=== PATIENT | female | born 1965 | race Caucasian/White ===

== ENCOUNTER 2016-12-25 18:00 | Emergency (ER) | payer OTHER ==
[2016-12-25] MEDS ORDERED: PHENAZOPYRIDINE 100 MG TABLET PO STA (20:08)
[2016-12-25] MEDS ORDERED: FLUCONAZOLE 100 MG TABLET PO STA (20:08)
[2016-12-25] MEDS ORDERED: NITROFURANTOIN MACRO 100 MG CAPSULE PO STA (20:08)
[2016-12-25] MEDS ORDERED: PHENAZOPYRIDINE 100 MG TABLET PO ONE (20:29)
[2016-12-25] MEDS ORDERED: NITROFURANTOIN MACRO 100 MG CAPSULE PO ONE (20:29)
[2016-12-25] MEDS ORDERED: FLUCONAZOLE 100 MG TABLET ONE ×2 (20:29→20:33)
== END 2016-12-25 20:38 | disposition home or self-care (01) ==
DX: N30.00 Acute cystitis without hematuria (principal); I10 Essential (primary) hypertension; E78.00 Pure hypercholesterolemia, unspecified; J45.909 Unspecified asthma, uncomplicated; E11.9 Type 2 diabetes mellitus without complications; Z79.82 Long term (current) use of aspirin; F17.200 Nicotine dependence, unspecified, uncomplicated
CPT/HCPCS: 81001; 87077; 87086; 87181; 99283; A9270

== ENCOUNTER 2018-11-01 08:14 | Emergency (ER) | payer OTHER ==
[2018-11-01] MEDS ORDERED: KETOROLAC 30 MG/ML VIAL IVP STA (08:40)
[2018-11-01] MEDS ORDERED: SODIUM CHLORIDE 0.9% 1,000 ML IV ONE (08:40)
[2018-11-01] MEDS ORDERED: cefTRIAXone 1 GM in SODIUM CHLORIDE 0.9% MINIBAG 100 ML IV STA (08:40)
--- NOTE | 2018-11-01 08:43 | ED Physician Documentation ---
PD HPI FEMALE - Stated complaint Stated Complaint: LEFT LOWER HIP PAIN INTO RIBS - Chief complaint Chief Complaint: Back Pain - History obtained from History obtained from: Patient - History of Present Illness Timing - onset: How many weeks ago (1) Timing - details: Still present (Getting worse) Associated symptoms: Abdominal pain, Back pain, Dysuria, Urinary frequency. No: Fever Similar symptoms before: Diagnosis (Pyelonephritis three months ago.) - Additional information Additional information: The patient is a 53-year-old diabetic female who presents with dysuria and frequency of urination that started about 1 week ago and has gotten progressively worse since that time. Today she developed left flank pain as well as suprapubic pressure. She has had mild nausea, without vomiting. She denies fever. She reports history of "kidney infection" 3 months ago. Review of Systems Constitutional: denies: Fever Nose: reports: Congestion Throat: denies: Sore throat Cardiac: denies: Palpitations Respiratory: reports: Cough. denies: Dyspnea GI: reports: Abdominal Pain (suprapubic), Nausea. denies: Vomiting : reports: Dysuria, Frequency. denies: Hematuria Skin: denies: Rash Musculoskeletal: reports: Back pain (left flank). 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 LOADER: section HEENT: Tonsil/Adenoidectomy - Present Medications Home Medications: Ambulatory Orders Medication Instructions Recorded Confirmed Aspirin [Aspir 81] 81 mg PO DAILY 10/14/13 11/01/18 Lisinopril [Prinivil] 20 mg PO DAILY 10/14/13 11/01/18 Metformin HCl [Fortamet] 1,000 mg PO BID 10/14/13 11/01/18 hydroCHLOROthiazide [Hydrodiuril] 25 mg PO ONCE 10/14/13 11/01/18 Albuterol 2.5 mg INH Q4H PRN 12/26/15 11/01/18 Phenazopyridine HCl [Pyridium] 200 mg PO TID PRN #6 tablet 11/01/18 cephALEXin [Cephalexin] 500 mg PO TID #20 tablet 11/01/18 - Allergies Allergies/Adverse Reactions: Allergies Allergy/AdvReac Type Severity Reaction Status Date / Time shellfish derived AdvReac Anaphylaxis Verified 12/25/16 18:19 - Social History Does the pt smoke?: Yes Smoking Status: Current every day smoker Does the pt drink ETOH?: No Does the pt have substance abuse?: No - Immunizations Immunizations are current?: Yes - POLST Patient has POLST: No PD ED PE NORMAL - Vitals Vital signs reviewed: Yes (normal) - General General: Alert and oriented X 3, Well developed/nourished - HEENT HEENT: Atraumatic, Pharynx benign - Neck Neck: No adenopathy, No JVD - Cardiac Cardiac: RRR, No murmur - Respiratory Respiratory: No respiratory distress, Clear bilaterally - Abdomen Abdomen: Soft, Other (Suprapubic tenderness to palpation, without rebound or guarding.) - Back Back: Other (Left flank tenderness to percussion.) - Derm Derm: No rash - Extremities Extremities: No edema, No calf tenderness / cord - Neuro Neuro: Alert and oriented X 3, No motor deficit, Normal speech Results - Vitals Vitals: Oxygen O2 Source Room air - Labs Labs: Microbiology 11/01/18 09:18 Urine Culture - Final Urine,Catheterized Escherichia Coli Laboratory Tests 11/01/18 11/01/18 11/01/18 09:15 09:15 09:18 WBC 13.1 H RBC 5.17 Hgb 9.3 L Hct 33.3 L MCV 64.3 L MCH 18.0 L MCHC 28.0 L RDW 20.0 H Plt Count 342 MPV 8.9 Neut # (Auto) 10.3 H Lymph # (Auto) 1.5 Josephine # (Auto) 0.8 Eos # (Auto) 0.3 Baso # (Auto) 0.2 H Absolute Nucleated RBC 0.01 Nucleated RBC % 0.1 Sodium 141 Potassium 3.8 Chloride 103 Carbon Dioxide 27 Anion Gap 11.0 BUN 11 Creatinine 0.5 Estimated GFR (MDRD) 130 Glucose 144 H Calcium 9.5 Urine Color YELLOW Urine Clarity CLEAR Urine pH 7.0 Ur Specific [place] 1.020 Urine Protein 30 H Urine Glucose (UA) NEGATIVE Urine Ketones NEGATIVE Urine Occult Blood MODERATE H Urine Nitrite NEGATIVE Urine Bilirubin NEGATIVE Urine Urobilinogen 0.2 (NORMAL) Ur Leukocyte Esterase SMALL H Urine RBC 6-10 H Urine WBC 11-25 H Ur Squamous Epith Cells RARE Squamous Urine Bacteria Rare Ur Microscopic Review INDICATED Urine Culture Comments INDICATED PD MEDICAL DECISION MAKING - ED course Complexity details: reviewed results, re-evaluated patient, considered differential, d/w patient ED course: The patient's presentation is most consistent with urinary tract infection. She does not appear septic, and I doubt pyelonephritis. Her urinalysis is positive for pyuria and leuko-uremia. Culture and sensitivity are pending. Her white blood cell count is elevated at 13.1. Her CBC also reveals anemia with a hemoglobin of 9.3 and hematocrit 33.9. Her serum glucose is only mildly elevated at 144. The rest of her chemistry panel was normal. Treatment in the emergency department included administration of normal saline 1 L IV, ceftriaxone 1 g IV, and ketorolac 30 mg IV. She is being discharged with prescriptions for cephalexin and for Pyridium. I discussed with her the diagnosis, expected course of illness, antibiotic treatment and outpatient follow-up, as well as potentially worrisome signs or symptoms that should prompt reevaluation in the emergency department. Departure - Departure Disposition: 01 Home, Self Care Clinical Impression: Urinary tract infection Qualifiers: Urinary tract infection type: acute cystitis Hematuria presence: without hematuria Qualified Code(s): N30.00 - Acute cystitis without hematuria Condition: Stable Instructions: ED UTI Cystitis Female Follow-Up: Rachel Wood MD [Primary Care Provider] - Prescriptions: cephALEXin [Cephalexin] 500 mg PO TID #20 tablet Phenazopyridine HCl [Pyridium] 200 mg PO TID PRN #6 tablet PRN Reason: dysuria Comments: Drink plenty of fluids, including cranberry juice. Take cephalexin 3 times daily as prescribed. You can use Pyridium as prescribed if needed for painful urination. You can use ibuprofen, up to 800 mg 3 times daily for its anti-inflammatory effect. Follow-up with your primary physician within 2 weeks. Call to schedule an appointment. Return to the emergency department if you develop increasing pain, fever with shaking chills, persistent vomiting, or otherwise worsening symptoms. Forms: Activity restrictions Discharge Date/Time: 11/01/18 11:07
[2018-11-01 09:30] LABS: BILIRUBIN,URINE NEGATIVE (NEGATIVE); CLARITY,URINE CLEAR (CLEAR); GLUCOSE, URINE (UA) NEGATIVE (NEGATIVE); KETONES,URINE (UA) NEGATIVE (NEGATIVE); LEUKOCYTE ESTERASE, URINE SMALL (NEGATIVE); NITRITE,URINE NEGATIVE (NEGATIVE); OCCULT BLOOD,URINE MODERATE (NEGATIVE); PROTEIN,URINE 30 mg/dL (NEGATIVE); UROBILINOGEN,URINE 0.2 (NORMAL) E.U./dL (NORMAL)
[2018-11-01 09:39] LABS: CALCIUM 9.5 mg/dL (8.5-10.3); CREATININE 0.5 mg/dL (0.4-1.0)
[2018-11-01 09:43] LABS: BASOPHILS # (AUTO) 0.2 10^3/uL (0.0-0.1); BASOPHILS % (AUTO) 1.4 %; EOSINOPHILS # (AUTO) 0.3 10^3/uL (0.0-0.7); HGB - HEMOGLOBIN 9.3 g/dL (12.0-16.0); LYMPHOCYTES # (AUTO) 1.5 10^3/uL (1.5-3.5); LYMPHOCYTES % (AUTO) 11.6 %; MEAN CORPUSCULAR VOLUME 64.3 fL (81.0-99.0); MEAN PLATELET VOLUME 8.9 fL (7.9-10.8); MONOCYTES # (AUTO) 0.8 10^3/uL (0.0-1.0); MONOCYTES % (AUTO) 6.2 %; NEUTROPHILS # (AUTO) 10.3 10^3/uL (1.5-6.6); NEUTROPHILS % (AUTO) 78.8 %; PLT - PLATELET COUNT 342 10^3/uL (130-450); RED BLOOD COUNT 5.17 10^6/uL (4.20-5.40); WHITE BLOOD COUNT 13.1 x10^3/uL (4.8-10.8)
[2018-11-01 09:47] LABS: BACTERIA,URINE Rare /HPF (None Seen); SQUAMOUS EPITHELIAL CELL,UR RARE Squamous (<= Few)
[2018-11-01 10:57] VITALS: BP 141/95
== END 2018-11-01 11:07 | disposition home or self-care (01) ==
LOC: ED 08:14
DX: N30.00 Acute cystitis without hematuria (principal); D64.9 Anemia, unspecified; E11.9 Type 2 diabetes mellitus without complications; I10 Essential (primary) hypertension; E78.00 Pure hypercholesterolemia, unspecified; F17.200 Nicotine dependence, unspecified, uncomplicated; Z79.82 Long term (current) use of aspirin; Z79.84 Long term (current) use of oral hypoglycemic drugs
CPT/HCPCS: 36415; 80048; 81001; 81003; 85025; 87086; 87181; 96365; 96375; 99283; 99284

== ENCOUNTER 2018-11-16 05:27 | Emergency (ER) | payer OTHER ==
[2018-11-16] MEDS ORDERED: SODIUM CHLORIDE 0.9% 1,000 ML IV ONE (06:19)
[2018-11-16] MEDS ORDERED: KETOROLAC 30 MG/ML VIAL IVP STA (06:19)
[2018-11-16] MEDS ORDERED: DEXAMETHASONE 10 MG/ML VIAL IVP STA (06:19)
--- NOTE | 2018-11-16 06:21 | ED Physician Documentation ---
PD HPI CHEST PAIN - Stated complaint Stated Complaint: SOA/BODY PX/FEVER - Chief complaint Chief Complaint: Resp - History obtained from History obtained from: Patient - History of Present Illness Timing - onset: Yesterday Timing - onset during: Rest Timing - duration: Days (1) Timing - details: Gradual onset, Still present Quality: Tightness, Sharp Location: Left chest Radiation: Back Improved by: Rest Worsened by: Inspiration, Movement, Palpation, Position Associated symptoms: Shortness of air, Cough. No: Diaphoresis, Nausea, Vomiting, Feeling faint / dizzy, General Weakness, Palpitations Similar symptoms before: Has not had sx before Recently seen: Not recently seen - Additional information Additional information: 53-year-old female awoke yesterday morning with pain in her left side that radiates down her left side. It is worse with inspiration and movement. She has had a cough for the past week. Review of Systems Constitutional: reports: Fever, Chills, Myalgias, Fatigue Eyes: denies: Decreased vision Ears: denies: Ear pain Nose: reports: Rhinorrhea / runny nose, Congestion Throat: reports: Sore throat Cardiac: reports: Chest pain / pressure. denies: Palpitations, Pedal edema, Calf pain Respiratory: reports: Cough. denies: Dyspnea GI: reports: Abdominal Pain. denies: Nausea, Vomiting : denies: Dysuria, Frequency Skin: denies: Rash Musculoskeletal: reports: Back pain. 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 HEENT: Tonsil/Adenoidectomy - Present Medications Home Medications: Ambulatory Orders Medication Instructions Recorded Confirmed Aspirin [Aspir 81] 81 mg PO DAILY 10/14/13 11/01/18 Lisinopril [Prinivil] 20 mg PO DAILY 10/14/13 11/01/18 Metformin HCl [Fortamet] 1,000 mg PO BID 10/14/13 11/01/18 hydroCHLOROthiazide [Hydrodiuril] 25 mg PO ONCE 10/14/13 11/01/18 Albuterol 2.5 mg INH Q4H PRN 12/26/15 11/01/18 Phenazopyridine HCl [Pyridium] 200 mg PO TID PRN #6 tablet 11/01/18 cephALEXin [Cephalexin] 500 mg PO TID #20 tablet 11/01/18 Amox/Clav 875/125 [Augmentin] 1 each PO Q12H #20 tablet 11/16/18 Hydrocodone/Acetaminophen 1 - 2 each PO Q6H PRN #14 tablet 11/16/18 [Hydrocodon-Acetaminophen 5-325] - Allergies Allergies/Adverse Reactions: Allergies Allergy/AdvReac Type Severity Reaction Status Date / Time shellfish derived AdvReac Anaphylaxis Verified 12/25/16 18:19 - Social History Does the pt smoke?: Yes Smoking Status: Current every day smoker Does the pt drink ETOH?: No Does the pt have substance abuse?: No - Immunizations Immunizations are current?: Yes - POLST Patient has POLST: No PD ED PE NORMAL - Vitals Vital signs reviewed: Yes - General General: Alert and oriented X 3, No acute distress, Well developed/nourished - HEENT HEENT: Atraumatic, PERRL, EOMI, Other (erythema and rounding of the umbo bilaterally ) - Neck Neck: Supple, no meningeal sign, No bony TTP - Cardiac Cardiac: RRR, No murmur - Respiratory Respiratory: No respiratory distress, Clear bilaterally, Other (There is mild chest wall tenderness on the left reproducing the pain the patient is experiencing. ) - Abdomen Abdomen: Soft, Other (left abdominal pain to palpation without guarding or rebound tenderness. 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, No motor deficit, No sensory deficit, Normal speech Eye Opening: Spontaneous Motor: Obeys Commands Verbal: Oriented GCS Score: 15 - Psych Psych: Normal mood, Normal affect Results - Vitals Vitals: Vital Signs - 24 hr 11/16/18 11/16/18 11/16/18 05:32 05:36 07:22 Temperature 36.7 C Heart Rate 109 H 100 Respiratory 18 20 Rate Blood Pressure 130/79 131/79 H O2 Saturation 98 97 98 Oxygen O2 Source Room air - EKG (time done) 0640 Rate: Rate (enter#) (99) Rhythm: NSR, LAE, KATIA Ischemia: ST elevation c/w repol (isolated to V2 only) Compare to prior EKG: Old EKG unavailable Computer interpretation: Agree with computer - Labs Labs: Laboratory Tests 11/16/18 11/16/18 11/16/18 06:38 06:38 06:38 WBC 13.8 H RBC 4.74 Hgb 8.8 L Hct 29.9 L MCV 63.1 L MCH 18.5 L MCHC 29.3 L RDW 19.3 H Plt Count 320 MPV 8.6 Neut # (Auto) 11.8 H Lymph # (Auto) 0.[address] [place] # (Auto) 0.9 Eos # (Auto) 0.1 Baso # (Auto) 0.0 Absolute Nucleated RBC 0.01 Nucleated RBC % 0.0 Manual Slide Review Indicated Platelet Estimate NORMAL (130-450,000) Platelet Morphology NORMAL APPEARANCE RBC Morph Micro Appear 2+ ANISOCYTOSIS Sodium 135 Potassium 3.9 Chloride 100 L Carbon Dioxide 26 Anion Gap 9.0 BUN 9 Creatinine 0.5 Estimated GFR (MDRD) 130 Glucose 148 H Calcium 9.0 Total Bilirubin 0.7 AST 19 ALT 16 Alkaline Phosphatase 65 Troponin I < 0.04 Total Protein 7.6 Albumin 3.6 Globulin 4.0 Albumin/Globulin Ratio 0.9 L Lipase 27 Urine Color Urine Clarity Urine pH Ur Specific [place] Urine Protein Urine Glucose (UA) Urine Ketones Urine Occult Blood Urine Nitrite Urine Bilirubin Urine Urobilinogen Ur Leukocyte Esterase Urine RBC Urine WBC Ur Squamous Epith Cells Urine Bacteria Ur Microscopic Review Urine Culture Comments Influenza A (Rapid) Influenza B (Rapid) 11/16/18 11/16/18 07:07 07:35 WBC RBC Hgb Hct MCV MCH MCHC RDW Plt Count MPV Neut # (Auto) Lymph # (Auto) [place] # (Auto) Eos # (Auto) Baso # (Auto) Absolute Nucleated RBC Nucleated RBC % Manual Slide Review Platelet Estimate Platelet Morphology RBC Morph Micro Appear Sodium Potassium Chloride Carbon Dioxide Anion Gap BUN Creatinine Estimated GFR (MDRD) Glucose Calcium Total Bilirubin AST ALT Alkaline Phosphatase Troponin I Total Protein Albumin Globulin Albumin/Globulin Ratio Lipase Urine Color YELLOW Urine Clarity CLOUDY Urine pH 7.0 Ur Specific [place] 1.020 Urine Protein 100 H Urine Glucose (UA) NEGATIVE Urine Ketones NEGATIVE Urine Occult Blood TRACE-INTA Urine Nitrite NEGATIVE Urine Bilirubin NEGATIVE Urine Urobilinogen 0.2 (NORMAL) Ur Leukocyte Esterase MODERATE H Urine RBC 6-10 H Urine WBC >25 H Ur Squamous Epith Cells MOD Squamous H Urine Bacteria Few Ur Microscopic Review INDICATED Urine Culture Comments NOT INDICATED Influenza A (Rapid) Negative Influenza B (Rapid) Negative - Rads (name of study) CXR 2 view Radiology: Prelim report reviewed (Impression: Mild to moderate bilateral interstitial and airspace disease, similar to prior studies. Stable mild cardiomegaly. Favor pulmonary edema or atypical infection in appropriate clinical setting.), EMP read indepedently, See rad report Procedures - Bedside sono Bedside sono by EMP: With use of bedside ultrasound the left kidney is imaged and it is sonographically nontender. There is no evidence of hydronephrosis. - IVC sono (time) 0620 Bedside IVC sono: IVC measures (cm) (1.7), Euvolemia PD MEDICAL DECISION MAKING - ED course Complexity details: reviewed results, re-evaluated patient, considered differential, d/w patient ED course: 53-year-old female with left sided pleuritic chest pain has had cough for the past week. She indicates she has had some postnasal drainage with thick yellow phlegm since being in a new house with baseboard heat. She has pain to her sinuses as well. On examination she has bilateral otitis. Here in the emergency department she is administered intravenous Decadron and Toradol. She has marked improvement with the medications and her CXR is concerning for pneumonia. I suspect the pain in her side is from coughing. She is administered IV rocephin and we will start her on Augmentin. Departure - Departure Disposition: 01 Home, Self Care Clinical Impression: Pneumonia Qualifiers: Pneumonia type: due to unspecified organism Laterality: right Lung location: lower lobe of lung Qualified Code(s): J18.1 - Lobar pneumonia, unspecified organism Otitis media Qualifiers: Otitis media type: suppurative Chronicity: acute Laterality: bilateral Recurrence: not specified as recurrent Spontaneous tympanic membrane rupture: without spontaneous rupture Qualified Code(s): H66.003 - Acute suppurative otitis media without spontaneous rupture of ear drum, bilateral Urinary tract infection Qualifiers: Urinary tract infection type: site unspecified Hematuria presence: without hematuria Qualified Code(s): N39.0 - Urinary tract infection, site not specified Condition: Stable Instructions: ED Otitis Media Acute Adult, ED Pneumonia Adult Follow-Up: Rachel Wood MD [Primary Care Provider] - Prescriptions: Amox/Clav 875/125 [Augmentin] 1 each PO Q12H #20 tablet Hydrocodone/Acetaminophen [Hydrocodon-Acetaminophen 5-325] 1 - 2 each PO Q6H PRN #14 tablet PRN Reason: pain Forms: Activity restrictions
[2018-11-16 07:02] LABS: BASOPHILS % (AUTO) 0.3 %; EOSINOPHILS # (AUTO) 0.1 10^3/uL (0.0-0.7); EOSINOPHILS % (AUTO) 0.8 %; HGB - HEMOGLOBIN 8.8 g/dL (12.0-16.0); LYMPHOCYTES # (AUTO) 0.9 10^3/uL (1.5-3.5); LYMPHOCYTES % (AUTO) 6.7 %; MEAN CORPUSCULAR HEMOGLOBIN 18.5 pg (27.0-31.0); MEAN CORPUSCULAR HGB CONC 29.3 g/dL (32.0-36.0); MEAN CORPUSCULAR VOLUME 63.1 fL (81.0-99.0); MEAN PLATELET VOLUME 8.6 fL (7.9-10.8); MONOCYTES # (AUTO) 0.9 10^3/uL (0.0-1.0); MONOCYTES % (AUTO) 6.3 %; NEUTROPHILS # (AUTO) 11.8 10^3/uL (1.5-6.6); NEUTROPHILS % (AUTO) 85.9 %; PLT - PLATELET COUNT 320 10^3/uL (130-450); RED BLOOD COUNT 4.74 10^6/uL (4.20-5.40); RED CELL DISTRIBUTION WIDTH 19.3 % (12.0-15.0); WHITE BLOOD COUNT 13.8 x10^3/uL (4.8-10.8)
[2018-11-16 07:04] LABS: ALBUMIN 3.6 g/dL (3.2-5.5); ALBUMIN/GLOBULIN RATIO 0.9 (1.0-2.2); BILIRUBIN,TOTAL 0.7 mg/dL (0.2-1.0); CREATININE 0.5 mg/dL (0.4-1.0); TOTAL PROTEIN 7.6 g/dL (6.7-8.2)
[2018-11-16 07:22] VITALS: BP 131/79
[2018-11-16] MEDS ORDERED: cefTRIAXone 1 GM in SODIUM CHLORIDE 0.9% MINIBAG 100 ML IV STA (07:34)
[2018-11-16 07:44] LABS: BILIRUBIN,URINE NEGATIVE (NEGATIVE); GLUCOSE, URINE (UA) NEGATIVE (NEGATIVE); KETONES,URINE (UA) NEGATIVE (NEGATIVE); LEUKOCYTE ESTERASE, URINE MODERATE (NEGATIVE); NITRITE,URINE NEGATIVE (NEGATIVE); OCCULT BLOOD,URINE TRACE-INTA (NEGATIVE); PROTEIN,URINE 100 mg/dL (NEGATIVE); UROBILINOGEN,URINE 0.2 (NORMAL) E.U./dL (NORMAL)
[2018-11-16 07:46] LABS: CLARITY,URINE CLOUDY (CLEAR)
[2018-11-16 07:59] LABS: BACTERIA,URINE Few /HPF (None Seen); SQUAMOUS EPITHELIAL CELL,UR MOD Squamous (<= Few)
[2018-11-16 08:07] LABS: PLATELET ESTIMATE, MANUAL NORMAL (130-450,000) (NORMAL); PLATELET MORPHOLOGY NORMAL APPEARANCE (NORMAL)
--- NOTE | 2018-11-16 08:15 | XRAY Report ---
Reason: L chest pain Procedure Date: 11/16/2018 Accession Number: [id number] / [id number] Procedure: XR - Chest 2 View X-Ray CPT Code: 92226 FULL RESULT: EXAM: CHEST RADIOGRAPHY EXAM DATE: 11/16/2018 07:35 AM. CLINICAL HISTORY: L chest pain. COMPARISON: 02/02/2015, 11/13/2014 chest radiographs. Correlation made with abdomen CT of 03/30/2016. TECHNIQUE: 2 views. FINDINGS: Lungs/Pleura: Mild to moderate bilateral interstitial and airspace opacities, similar to priors. No pleural effusion or pneumothorax. Mediastinum: Stable mild cardiomegaly. Stable mildly tortuous and ectatic aorta. Other: None. IMPRESSION: Mild to moderate bilateral interstitial and airspace disease, similar to prior studies. Stable mild cardiomegaly. Favor pulmonary edema or atypical infection in appropriate clinical setting. RADIA
== END 2018-11-16 08:18 | disposition home or self-care (01) ==
LOC: ED 05:27
DX: J18.1 Lobar pneumonia, unspecified organism (principal); H66.003 Acute suppurative otitis media without spontaneous rupture of ear drum, bilateral; N39.0 Urinary tract infection, site not specified; I10 Essential (primary) hypertension; E11.9 Type 2 diabetes mellitus without complications; F17.200 Nicotine dependence, unspecified, uncomplicated; Z79.84 Long term (current) use of oral hypoglycemic drugs
CPT/HCPCS: 36415; 71046; 80053; 81001; 81003; 83690; 84484; 85025; 87086; 87275; 87276; 93005; 96374; 96375; 99283; 99284

== ENCOUNTER 2023-01-21 07:21 | Emergency (ER) | payer MEDICAID ==
[2023-01-21 07:45] VITALS: BP 119/68
--- NOTE | 2023-01-21 08:20 | XRAY Report ---
PROCEDURE: Chest 2 View X-Ray INDICATIONS: cough TECHNIQUE: 2 views of the chest were acquired. COMPARISON: Chest x-ray, 2 views, 02/02/2015. FINDINGS: Surgical changes and devices: None. Lungs and pleura: No pleural effusions or pneumothorax. There is diffuse interstitial prominence. Mediastinum: Mediastinal contours appear normal. Heart size is prominent in size. Bones and chest wall: No suspicious bony lesions. Overlying soft tissues appear unremarkable. IMPRESSION: 1. No acute cardiopulmonary process. 2. Bilateral interstitial prominence. 3. There is mild cardiomegaly. Reviewed by: John Castro MD on 01/21/2023 8:18 AM PDT Approved by: John Castro MD on 01/21/2023 8:18 AM PDT Station ID: [id number]
[2023-01-21] MEDS ORDERED: DEXAMETHASONE 10 MG/ML VIAL IM STA (08:45)
--- NOTE | 2023-01-21 08:47 | ED Physician Documentation ---
History of Present Illness - Stated complaint Stated Complaint: COUGH/CONGESTION - Chief complaint Chief Complaint: General - History obtained from History obtained from: Patient - Additonal information Additional information: The patient comes to the emergency department with chief complaint of sinus congestion and productive cough for the last approximately week. The patient states that she was first exposed by a pediatric member the family to this illness, and then, the patient's sister also got sick with the same thing. The patient is a smoker and does use inhalers at home, and states she has been using Robitussin for her cough, as well. No fevers or chills. No nausea or vomiting. No other complaints at this time. 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 HEENT: None Psych: None Musculoskeletal: Chronic back pain Derm: None - Past Surgical History Past Surgical History: Yes General: Appendectomy /BAKER CHEF: section HEENT: Tonsil/Adenoidectomy - Present Medications Home Medications: Ambulatory Orders Medication Instructions Recorded Confirmed Aspirin [Aspir 81] 81 mg PO DAILY 10/14/13 11/01/18 Metformin HCl [Fortamet] 1,000 mg PO BID 10/14/13 11/01/18 hydroCHLOROthiazide [Hydrodiuril] 25 mg PO ONCE 10/14/13 11/01/18 lisinopriL [Prinivil] 20 mg PO DAILY 10/14/13 11/01/18 Albuterol 2.5 mg INH Q4H PRN 12/26/15 11/01/18 Phenazopyridine HCl [Pyridium] 200 mg PO TID PRN #6 tablet 11/01/18 cephALEXin [Cephalexin] 500 mg PO TID #20 tablet 11/01/18 Amox/Clav 875/125 [Augmentin] 1 each PO Q12H #20 tablet 11/16/18 Hydrocodone/Acetaminophen 1 - 2 each PO Q6H PRN #14 tablet 11/16/18 [Hydrocodon-Acetaminophen 5-325] predniSONE [Deltasone] 60 mg PO DAILY 5 Days #15 tablet 01/21/23 - Allergies Allergies/Adverse Reactions: Allergies Allergy/AdvReac Type Severity Reaction Status Date / Time shellfish derived AdvReac Anaphylaxis Verified 01/21/23 07:40 - Social History Does the pt smoke?: Yes Smoking Status: Current every day smoker Does the pt drink ETOH?: No Does the pt have substance abuse?: No - Immunizations Immunizations are current?: Yes - POLST Patient has POLST: No PD ED PE NORMAL - Vitals Vital signs reviewed: Yes - General General: Alert and oriented X 3, No acute distress, Well developed/nourished - HEENT HEENT: Atraumatic, PERRL, EOMI, Moist mucous membranes - Neck Neck: Supple, no meningeal sign - Cardiac Cardiac: RRR, No murmur - Respiratory Respiratory: No respiratory distress, Clear bilaterally - Abdomen Abdomen: Soft, Non tender, Non distended - Derm Derm: Normal color, Warm and dry, No rash - Extremities Extremities: No deformity, No edema - Neuro Neuro: Alert and oriented X 3 - Psych Psych: Normal mood, Normal affect Results - Vitals Vitals: Vital Signs - 24 hr 01/21/23 07:41 Temperature 36.4 C L Heart Rate 75 Respiratory 24 Rate Blood Pressure 119/68 O2 Saturation 98 Oxygen O2 Source Room air - Labs Labs: Laboratory Tests 01/21/23 07:45 Nasal Adenovirus (PCR) NOT DETECTED Nasal B. parapertussis DNA (PCR) NOT DETECTED Nasal Coronavir 229E PCR NOT DETECTED Nasal Coronavir HKU1 PCR NOT DETECTED Nasal Coronavir NL63 PCR NOT DETECTED Nasal Coronavir OC43 PCR NOT DETECTED Nasal Enterovir/Rhinovir PCR DETECTED A Nasal Influenza B PCR NOT DETECTED Nasal Influenza A PCR NOT DETECTED Nasal Parainfluen 1 PCR NOT DETECTED Nasal Parainfluen 2 PCR NOT DETECTED Nasal Parainfluen 3 PCR NOT DETECTED Nasal Parainfluen 4 PCR NOT DETECTED Nasal RSV (PCR) NOT DETECTED Nasal B.pertussis DNA PCR NOT DETECTED Nasal C.pneumoniae (PCR) NOT DETECTED Edwin Human Metapneumo PCR NOT DETECTED Nasal M.pneumoniae (PCR) NOT DETECTED Nasal SARS-CoV-2 (PCR) NOT DETECTED - Rads (name of study) Chest X-ray Relevant Findings:: Final report received, See rad report PD Medical Decision Making - ED course Complexity details: reviewed results, re-evaluated patient, considered differential, d/w patient ED course: The patient was not wheezing at the time of my examination, and I did not feel she needed a nebulizer treatment. I did give her a dose of Decadron, as she has been having to use her inhalers at home during this illness, and I have sent a prescription for prednisone to the pharmacy of her choice. We have discussed that this is most likely a viral illness, given the symptoms and negative chest x-ray, and as such, will pass on its own. We discussed symptomatic management at home and the usual indications for return. Departure - Departure Disposition: 01 Home, Self Care Clinical Impression: Viral upper respiratory infection Condition: Stable Instructions: ED Viral Syndrome Prescriptions: predniSONE [Deltasone] 60 mg PO DAILY 5 Days #15 tablet Comments: Your chest x-ray looks goodno pneumonia. Your symptoms are most certainly caused by one of the many viruses that are going around right now and causing such symptoms, And as such, the symptoms will ultimately go away on their own. Please continue to take your Robitussin and inhalers at home. A prescription for prednisone has been electronically transmitted to the [facility] pharmacy in [place] and you may take this to help with some of your respiratory symptoms as well. Please follow-up with your doctor as needed.
[2023-01-21 08:50] LABS: CORONAVIRUS 229E-RESP PCR NOT DETECTED; CORONAVIRUS HKU1-RESP PCR NOT DETECTED; CORONAVIRUS NL63-RESP PCR NOT DETECTED; CORONAVIRUS OC43-RESP PCR NOT DETECTED; HUMAN METAPNEUMOVIRUS NOT DETECTED; SARS-CoV-2 -RESP PCR PANEL NOT DETECTED
[2023-01-21 08:51] LABS: B. PARAPERTUSSIS- RESP PCR PAN NOT DETECTED; B. PERTUSSIS- RESP PCR PANEL NOT DETECTED; C. PNEUMONIAE- RESP PCR PANEL NOT DETECTED; INFLUENZA A- RESP PCR PANEL NOT DETECTED; INFLUENZA B - RESP PCR PANEL NOT DETECTED; M. PNEUMONIAE- RESP PCR PANEL NOT DETECTED; PARAINFLUENZA VIRUS 1 NOT DETECTED; PARAINFLUENZA VIRUS 2 NOT DETECTED; PARAINFLUENZA VIRUS 3 NOT DETECTED; PARAINFLUENZA VIRUS 4 NOT DETECTED; RHINOVIRUS/ENTEROVIRUS DETECTED; RSV- RESP PCR PANEL NOT DETECTED
== END 2023-01-21 09:24 | disposition home or self-care (01) ==
LOC: ED 07:21
DX: J06.9 Acute upper respiratory infection, unspecified (principal); I10 Essential (primary) hypertension; E78.00 Pure hypercholesterolemia, unspecified; E11.9 Type 2 diabetes mellitus without complications; F17.200 Nicotine dependence, unspecified, uncomplicated; Z20.822 Contact with and (suspected) exposure to COVID-19; Z79.82 Long term (current) use of aspirin; Z79.84 Long term (current) use of oral hypoglycemic drugs; Z79.899 Other long term (current) drug therapy
CPT/HCPCS: 87633; 96372; 99283; 99284

== ENCOUNTER 2023-05-13 14:25 | Outpatient (CLI) | payer MEDICARE | END 2023-05-13 14:26 | disposition short-term general hospital (02) | LOC: EMS 14:25 | DX: R06.02 Shortness of breath (principal); R53.1 Weakness; R42 Dizziness and giddiness; R07.89 Other chest pain; R20.2 Paresthesia of skin; R47.81 Slurred speech | CPT/HCPCS: A0425; A0427; A0888 ==